=== PATIENT | male | born 1985 | race Hispanic/Latino ===

== ENCOUNTER 2023-08-03 11:21 | Emergency (ER) | payer SELFPAY ==
[2023-08-03] MEDS ORDERED: Ventolin HFA Inhaler 60 PUFF INHALER ONE (13:28)
== END 2023-08-03 16:53 | disposition home or self-care (01) ==
LOC: CSHERS 11:21
DX: J18.9 Pneumonia, unspecified organism (principal); Z55.6 Problems related to health literacy
CPT/HCPCS: 71045; 93005; 94664; 94760